=== PATIENT | male | born 1955 | race Asian ===

== ENCOUNTER → 2019-09-26 | Outpatient (CLI) | payer OTHER | END | disposition home or self-care (01) | LOC: PUC 13:03 | DX: J40 Bronchitis, not specified as acute or chronic (principal) ==

== ENCOUNTER 2019-12-27 07:54 | Inpatient (IN) | payer OTHER ==
[~2019-12-27] VITALS: Ht 177.8 cm; Wt 97.1 kg
[2019-12-27] MEDS ORDERED: CETI10TA59 PO (08:50)
[2019-12-27] MEDS ORDERED: HYDR-1475 PO (08:50)
[2019-12-27] MEDS ORDERED: ADV100 IH (08:50)
[2019-12-27] MEDS ORDERED: ASPI-728 PO (08:50)
[2019-12-27] MEDS ORDERED: TAMS-13 PO (08:50)
[2019-12-27] MEDS ORDERED: METO25 PO (08:50)
[2019-12-27] MEDS ORDERED: LOSA25TA71 PO (08:50)
[2019-12-27] MEDS ORDERED: SERT100T12 PO (08:50)
[2019-12-27] MEDS ORDERED: IPRA4AER IH (08:50)
[2019-12-27 09:19] LABS: BASOPHILS % (AUTO) 0.5 % (0.0-2.0); EOSINOPHILS % (AUTO) 0.3 % (1.0-6.0); HEMOGLOBIN 14.3 g/dL (13.5-17.5); LYMPHOCYTES # (AUTO) 0.8 K/uL (1.0-4.8); LYMPHOCYTES % (AUTO) 8.2 % (22.0-44.0); MEAN CORPUSCULAR HEMOGLOBIN 31.3 pg (26.0-34.0); MEAN CORPUSCULAR HGB CONC 33.3 G/dL (31.0-37.0); MEAN CORPUSCULAR VOLUME 94 fL (80-100); MONOCYTES # (AUTO) 1.4 K/uL (0.1-1.0); MONOCYTES % (AUTO) 13.7 % (2.0-9.0); NEUTROPHILS # (AUTO) 7.7 K/uL (1.8-7.7); NEUTROPHILS % (AUTO) 77.3 % (40.0-70.0); PLATELET COUNT (AUTO) 315 K/uL (150-450); RED BLOOD CELL COUNT(AUTO) 4.58 MIL/uL (4.50-5.90); RED CELL DISTRIBUTION WIDTH 12.7 % (11.5-14.5)
[2019-12-27] MEDS ORDERED: 0.9% SODIUM CHLORIDE 10 ML SYRINGE IVP PRN ×2 (10:00→11:30)
[2019-12-27] MEDS ORDERED: ACETAMINOPHEN 325 MG TABLET PO PRN (10:00)
[2019-12-27] MEDS ORDERED: ONDANSETRON HCL 4 MG/2 ML VIAL IVP PRN ×2 (10:00→11:30)
[2019-12-27 10:10] LABS: ANION GAP 14 mmol/L (8-16); CALCIUM, TOTAL 8.9 mg/dL (8.8-10.5); CARBON DIOXIDE 23 mmol/L (22-29); CHLORIDE 96 mmol/L (98-107); CREATININE 0.94 mg/dL (0.60-1.30); GLOMERULAR FILTR. RATE CALC > 60 mL/min (>60); GLUCOSE,RANDOM 106 mg/dL (70-110); POTASSIUM 3.6 mmol/L (3.5-5.1); SODIUM SERUM 133 mmol/L (136-145); UREA NITROGEN, BLOOD 11 mg/dL (7-18)
[2019-12-27 10:13] LABS: ALANINE AMINOTRANSFERASE 321 U/L (12-78); ALBUMIN 2.7 g/dL (3.4-5.0); ALKALINE PHOSPHATASE 177 U/L (46-116); ASPARTATE AMINOTRANSFERASE 225 U/L (15-37); BILIRUBIN,TOTAL 1.1 mg/dL (0.1-1.0); TOTAL PROTEIN, SERUM 7.6 g/dL (6.4-8.2)
[2019-12-27] MEDS ORDERED: DEXTROSE 50%-WATER 25 GM/50 ML SYRINGE IVP PRN (11:15)
[2019-12-27] MEDS ORDERED: ALBUTEROL SULFATE/IPRATROPIUM 100-20 MCG/SPRAY 4 GM INHALER IH PRN (11:15)
[2019-12-27] MEDS ORDERED: MAGNESIUM HYDROXIDE SUSPENSION 30 ML UDCUP PO PRN (11:30)
[2019-12-27] MEDS ORDERED: BISACODYL 10 MG RECTAL RECTAL SUPPOSITORY PR PRN (11:30)
[2019-12-27 12:48] LABS: C-REACTIVE PROTEIN QUANT 20.21 mg/dL (0.00-0.30)
[2019-12-27 12:55] LABS: ERYTHROCYTE SEDIMENTATION RATE 101 MM/HR (0-15)
[2019-12-27 14:16] LABS: FERRITIN 3007 ng/mL (26-388)
[2019-12-27 14:43] VITALS: BP 147/78
[2019-12-27] MEDS ORDERED: PNEUMOCOCCAL VACCINE POLYVALENT 0.5 ML VIAL [PPSV23] IM ONE (17:00)
[2019-12-27 17:57] LABS: GLUCOMETER DEV NAME(LOC) 5S.2A; GLUCOSE,POINT OF CARE 101 MG/DL (70-110)
[2019-12-27 20:30] VITALS: BP 149/79
[2019-12-27] MEDS: HEPARIN SODIUM,PORCINE 5,000 UNITS/ML VIAL SQ SCH (21:17)
[2019-12-27] MEDS: METOPROLOL TARTRATE 25 MG TABLET PO SCH (21:17)
[2019-12-27] MEDS: TAMSULOSIN HCL 0.4 MG CAPSULE PO SCH (21:17)
[2019-12-27] MEDS: FLUTICASONE/SALMETEROL 100 MCG-50 MCG/INH DISKUS INHALER [28] IH SCH (21:17)
[2019-12-27] MEDS: ACETAMINOPHEN 325 MG TABLET PO PRN (21:37)
[2019-12-27 23:54] VITALS: BP 108/74
[2019-12-28 04:30] VITALS: BP 135/78
[2019-12-28 07:51] LABS: BASOPHILS % (AUTO) 0.4 % (0.0-2.0); EOSINOPHILS % (AUTO) 1.3 % (1.0-6.0); HEMATOCRIT 39.9 % (41-53); HEMOGLOBIN 13.8 g/dL (13.5-17.5); LYMPHOCYTES # (AUTO) 0.9 K/uL (1.0-4.8); LYMPHOCYTES % (AUTO) 8.8 % (22.0-44.0); MEAN CORPUSCULAR HEMOGLOBIN 32.3 pg (26.0-34.0); MEAN CORPUSCULAR HGB CONC 34.5 G/dL (31.0-37.0); MEAN CORPUSCULAR VOLUME 94 fL (80-100); MONOCYTES # (AUTO) 1.2 K/uL (0.1-1.0); MONOCYTES % (AUTO) 12.6 % (2.0-9.0); NEUTROPHILS # (AUTO) 7.6 K/uL (1.8-7.7); NEUTROPHILS % (AUTO) 76.9 % (40.0-70.0); PLATELET COUNT (AUTO) 332 K/uL (150-450); RED BLOOD CELL COUNT(AUTO) 4.26 MIL/uL (4.50-5.90); RED CELL DISTRIBUTION WIDTH 12.3 % (11.5-14.5)
[2019-12-28 07:59] LABS: ALANINE AMINOTRANSFERASE 261 U/L (12-78); ALBUMIN 2.4 g/dL (3.4-5.0); ALKALINE PHOSPHATASE 173 U/L (46-116); ANION GAP 8 mmol/L (8-16); ASPARTATE AMINOTRANSFERASE 144 U/L (15-37); BILIRUBIN,TOTAL 1.1 mg/dL (0.1-1.0); CALCIUM, TOTAL 8.3 mg/dL (8.8-10.5); CARBON DIOXIDE 27 mmol/L (22-29); CHLORIDE 97 mmol/L (98-107); CREATININE 1.03 mg/dL (0.60-1.30); GLOMERULAR FILTR. RATE CALC > 60 mL/min (>60); GLUCOSE,RANDOM 103 mg/dL (70-110); POTASSIUM 3.4 mmol/L (3.5-5.1); SODIUM SERUM 132 mmol/L (136-145); TOTAL PROTEIN, SERUM 7.2 g/dL (6.4-8.2); UREA NITROGEN, BLOOD 13 mg/dL (7-18)
[2019-12-28 08:00] VITALS: BP 136/84
[2019-12-28] MEDS: LOSARTAN POTASSIUM 25 MG TABLET PO SCH (08:22)
[2019-12-28] MEDS: FLUTICASONE/SALMETEROL 100 MCG-50 MCG/INH DISKUS INHALER [28] IH SCH ×2 (08:22→21:32)
[2019-12-28] MEDS: ASPIRIN 81 MG CHEWABLE TABLET PO SCH (08:22)
[2019-12-28] MEDS: SERTRALINE HCL 100 MG TABLET PO SCH (08:23)
[2019-12-28] MEDS: PANTOPRAZOLE SODIUM 40 MG DR TABLET PO SCH (08:23)
[2019-12-28] MEDS: CETIRIZINE HCL 10 MG TABLET PO SCH (08:23)
[2019-12-28] MEDS: HEPARIN SODIUM,PORCINE 5,000 UNITS/ML VIAL SQ SCH ×2 (08:23→21:00)
[2019-12-28] MEDS: METOPROLOL TARTRATE 25 MG TABLET PO SCH ×2 (08:23→21:30)
[2019-12-28] MEDS: TAMSULOSIN HCL 0.4 MG CAPSULE PO SCH ×2 (08:23→21:32)
[2019-12-28 12:24] VITALS: BP 114/70
[2019-12-28] MEDS ORDERED: ALPRAZolam 0.25 MG TABLET PO PRN (13:45)
[2019-12-28] MEDS ORDERED: POTASSIUM CHL 10 MEQ/WATER 50 ML IV PRN (13:45)
[2019-12-28] MEDS: HYDROXYCHLOROQUINE SULFATE 200 MG TABLET PO SCH ×2 (14:22→21:31)
[2019-12-28] MEDS: POTASSIUM CHLORIDE 20 MEQ ER TABLET PO PRN ×2 (14:22→21:31)
[2019-12-28 16:00] VITALS: BP 118/72
[2019-12-28 17:51] LABS: GLUCOMETER DEV NAME(LOC) 5S.2A; GLUCOSE,POINT OF CARE 114 MG/DL (70-110)
[2019-12-28 20:00] VITALS: BP 137/80
[2019-12-28 21:04] LABS: APPEARANCE,URINE CLEAR (CLEAR); GLUCOSE, URINE (UA) NEGATIVE (NEGATIVE); KETONES,URINE NEGATIVE (NEGATIVE); LEUKOCYTE ESTERASE ,URINE TRACE (NEGATIVE); NITRATE,URINE NEGATIVE (NEGATIVE); OCCULT BLOOD,URINE NEGATIVE (NEGATIVE); PROTEIN,URINE SEE CONFIRM (NEGATIVE)
[2019-12-28 21:06] LABS: BILIRUBIN,URINE PRELIM. POSITIVE (NEGATIVE)
[2019-12-28 21:17] LABS: BACTERIA,URINE Rare /HPF (None Seen); RBC,URINE 0-2 /HPF (0-2); SQUAMOUS EPITHELIAL CELL,UR Few /LPF (None Seen); SULFOSALICYLIC ACID,URINE 2+ (Negative)
[2019-12-28] MEDS: ZINC GLUCONATE 50 MG TABLET PO SCH (21:32)
[2019-12-29 00:34] VITALS: BP 110/74
[2019-12-29 05:51] VITALS: BP 130/78
[2019-12-29 06:01] LABS: GLUCOMETER DEV NAME(LOC) 5N.1; GLUCOSE,POINT OF CARE 117 MG/DL (70-110)
[2019-12-29 06:01] LABS: GLUCOMETER DEV NAME(LOC) 5N.1; GLUCOSE,POINT OF CARE 106 MG/DL (70-110)
[2019-12-29 06:01] LABS: GLUCOMETER DEV NAME(LOC) 5N.1; GLUCOSE,POINT OF CARE 122 MG/DL (70-110)
[2019-12-29 06:01] LABS: GLUCOMETER DEV NAME(LOC) 5N.1; GLUCOSE,POINT OF CARE 112 MG/DL (70-110)
[2019-12-29 08:12] LABS: BASOPHILS % (AUTO) 0.2 % (0.0-2.0); HEMATOCRIT 38.3 % (41-53); LYMPHOCYTES # (AUTO) 0.9 K/uL (1.0-4.8); LYMPHOCYTES % (AUTO) 8.6 % (22.0-44.0); MEAN CORPUSCULAR HEMOGLOBIN 31.9 pg (26.0-34.0); MEAN CORPUSCULAR HGB CONC 33.8 G/dL (31.0-37.0); MEAN CORPUSCULAR VOLUME 94 fL (80-100); MONOCYTES # (AUTO) 1.1 K/uL (0.1-1.0); MONOCYTES % (AUTO) 10.8 % (2.0-9.0); NEUTROPHILS % (AUTO) 78.4 % (40.0-70.0); PLATELET COUNT (AUTO) 403 K/uL (150-450); RED BLOOD CELL COUNT(AUTO) 4.06 MIL/uL (4.50-5.90); RED CELL DISTRIBUTION WIDTH 12.4 % (11.5-14.5)
[2019-12-29 08:31] LABS: D-DIMER 4.56 mg/L FEU (0.00-0.50); INR 1.1 (0.9-1.1); PROTHROMBIN TIME 10.9 SEC (9.4-11.6)
[2019-12-29 08:59] LABS: ALANINE AMINOTRANSFERASE 199 U/L (12-78); ALBUMIN 2.3 g/dL (3.4-5.0); ALKALINE PHOSPHATASE 173 U/L (46-116); ANION GAP 10 mmol/L (8-16); ASPARTATE AMINOTRANSFERASE 89 U/L (15-37); BILIRUBIN,TOTAL 0.7 mg/dL (0.1-1.0); C-REACTIVE PROTEIN QUANT 17.16 mg/dL (0.00-0.30); CARBON DIOXIDE 24 mmol/L (22-29); CHLORIDE 100 mmol/L (98-107); CREATININE 0.92 mg/dL (0.60-1.30); FERRITIN 2583 ng/mL (26-388); GLOMERULAR FILTR. RATE CALC > 60 mL/min (>60); GLUCOSE,RANDOM 96 mg/dL (70-110); POTASSIUM 4.3 mmol/L (3.5-5.1); SODIUM SERUM 134 mmol/L (136-145); TOTAL PROTEIN, SERUM 6.3 g/dL (6.4-8.2); UREA NITROGEN, BLOOD 15 mg/dL (7-18)
[2019-12-29 09:01] LABS: B-TYPE NATRIURETIC PEPTIDE 56 pg/mL (0-100)
[2019-12-29 09:10] LABS: LACTATE DEHYDROGENASE 276 U/L (85-227)
[2019-12-29] MEDS: HYDROXYCHLOROQUINE SULFATE 200 MG TABLET PO SCH ×2 (09:19→21:52)
[2019-12-29] MEDS: ZINC GLUCONATE 50 MG TABLET PO SCH (09:19)
[2019-12-29] MEDS: METOPROLOL TARTRATE 25 MG TABLET PO SCH ×2 (09:19→21:53)
[2019-12-29] MEDS: CETIRIZINE HCL 10 MG TABLET PO SCH (09:20)
[2019-12-29] MEDS: LOSARTAN POTASSIUM 25 MG TABLET PO SCH (09:20)
[2019-12-29] MEDS: SERTRALINE HCL 100 MG TABLET PO SCH (09:20)
[2019-12-29] MEDS: TAMSULOSIN HCL 0.4 MG CAPSULE PO SCH ×2 (09:20→21:52)
[2019-12-29] MEDS: ASPIRIN 81 MG CHEWABLE TABLET PO SCH (09:20)
[2019-12-29] MEDS: PANTOPRAZOLE SODIUM 40 MG DR TABLET PO SCH (09:21)
[2019-12-29] MEDS: FLUTICASONE/SALMETEROL 100 MCG-50 MCG/INH DISKUS INHALER [28] IH SCH ×2 (09:21→21:52)
[2019-12-29] MEDS: HEPARIN SODIUM,PORCINE 5,000 UNITS/ML VIAL SQ SCH ×2 (09:22→21:52)
[2019-12-29 13:56] VITALS: BP 117/76
[2019-12-29] MEDS: AZITHROMYCIN 500 MG TABLET PO SCH (15:15)
[2019-12-29 16:05] VITALS: BP 120/72
[2019-12-29 20:05] VITALS: BP 121/74
[2019-12-29 20:59] LABS: GLUCOMETER DEV NAME(LOC) 5N.2; GLUCOSE,POINT OF CARE 115 MG/DL (70-110)
[2019-12-30] VITALS (7 sets, daily range): BP systolic 100–140; BP diastolic 54–78
[2019-12-30 06:20] LABS: BASOPHILS % (AUTO) 0.4 % (0.0-2.0); EOSINOPHILS % (AUTO) 1.5 % (1.0-6.0); HEMATOCRIT 37.6 % (41-53); HEMOGLOBIN 12.7 g/dL (13.5-17.5); LYMPHOCYTES # (AUTO) 0.9 K/uL (1.0-4.8); LYMPHOCYTES % (AUTO) 10.1 % (22.0-44.0); MEAN CORPUSCULAR HEMOGLOBIN 31.7 pg (26.0-34.0); MEAN CORPUSCULAR HGB CONC 33.7 G/dL (31.0-37.0); MEAN CORPUSCULAR VOLUME 94 fL (80-100); MONOCYTES # (AUTO) 1.2 K/uL (0.1-1.0); MONOCYTES % (AUTO) 13.3 % (2.0-9.0); NEUTROPHILS # (AUTO) 6.7 K/uL (1.8-7.7); NEUTROPHILS % (AUTO) 74.7 % (40.0-70.0); PLATELET COUNT (AUTO) 468 K/uL (150-450); RED BLOOD CELL COUNT(AUTO) 3.99 MIL/uL (4.50-5.90); RED CELL DISTRIBUTION WIDTH 12.8 % (11.5-14.5)
[2019-12-30 06:26] LABS: GLUCOMETER DEV NAME(LOC) 5N.2; GLUCOSE,POINT OF CARE 137 MG/DL (70-110)
[2019-12-30 06:27] LABS: GLUCOMETER DEV NAME(LOC) 5S.1; GLUCOSE,POINT OF CARE 90 MG/DL (70-110)
[2019-12-30 06:27] LABS: GLUCOMETER DEV NAME(LOC) 5S.1; GLUCOSE,POINT OF CARE 97 MG/DL (70-110)
[2019-12-30 06:36] LABS: ALANINE AMINOTRANSFERASE 170 U/L (12-78); ALBUMIN 2.2 g/dL (3.4-5.0); ALKALINE PHOSPHATASE 170 U/L (46-116); ANION GAP 8 mmol/L (8-16); ASPARTATE AMINOTRANSFERASE 82 U/L (15-37); BILIRUBIN,TOTAL 0.7 mg/dL (0.1-1.0); CALCIUM, TOTAL 8.3 mg/dL (8.8-10.5); CARBON DIOXIDE 27 mmol/L (22-29); CHLORIDE 101 mmol/L (98-107); CREATININE 1.01 mg/dL (0.60-1.30); GLOMERULAR FILTR. RATE CALC > 60 mL/min (>60); GLUCOSE,RANDOM 92 mg/dL (70-110); POTASSIUM 4.6 mmol/L (3.5-5.1); SODIUM SERUM 136 mmol/L (136-145); UREA NITROGEN, BLOOD 12 mg/dL (7-18)
[2019-12-30 06:39] LABS: GLUCOMETER DEV NAME(LOC) 5N.1; GLUCOSE,POINT OF CARE 105 MG/DL (70-110)
[2019-12-30] MEDS: ASPIRIN 81 MG CHEWABLE TABLET PO SCH (08:46)
[2019-12-30] MEDS: LOSARTAN POTASSIUM 25 MG TABLET PO SCH (08:47)
[2019-12-30] MEDS: TAMSULOSIN HCL 0.4 MG CAPSULE PO SCH ×2 (08:47→20:41)
[2019-12-30] MEDS: HYDROXYCHLOROQUINE SULFATE 200 MG TABLET PO SCH ×2 (08:52→20:41)
[2019-12-30] MEDS: METOPROLOL TARTRATE 25 MG TABLET PO SCH ×2 (08:52→20:41)
[2019-12-30] MEDS: PANTOPRAZOLE SODIUM 40 MG DR TABLET PO SCH (08:52)
[2019-12-30] MEDS: ZINC GLUCONATE 50 MG TABLET PO SCH (08:52)
[2019-12-30] MEDS: HEPARIN SODIUM,PORCINE 5,000 UNITS/ML VIAL SQ SCH ×2 (08:53→20:41)
[2019-12-30] MEDS: CETIRIZINE HCL 10 MG TABLET PO SCH (08:53)
[2019-12-30] MEDS: SERTRALINE HCL 100 MG TABLET PO SCH (08:53)
[2019-12-30] MEDS: AZITHROMYCIN 500 MG TABLET PO SCH (08:53)
[2019-12-30] MEDS: FLUTICASONE/SALMETEROL 100 MCG-50 MCG/INH DISKUS INHALER [28] IH SCH ×2 (09:34→21:36)
[2019-12-30] MEDS: ACETAMINOPHEN 325 MG TABLET PO PRN (17:52)
[2019-12-31 04:30] VITALS: BP 113/58
[2019-12-31 06:05] LABS: BASOPHILS % (AUTO) 0.6 % (0.0-2.0); EOSINOPHILS % (AUTO) 0.8 % (1.0-6.0); HEMATOCRIT 37.2 % (41-53); HEMOGLOBIN 12.9 g/dL (13.5-17.5); LYMPHOCYTES # (AUTO) 0.9 K/uL (1.0-4.8); LYMPHOCYTES % (AUTO) 7.9 % (22.0-44.0); MEAN CORPUSCULAR HEMOGLOBIN 32.7 pg (26.0-34.0); MEAN CORPUSCULAR HGB CONC 34.6 G/dL (31.0-37.0); MEAN CORPUSCULAR VOLUME 95 fL (80-100); MONOCYTES # (AUTO) 1.3 K/uL (0.1-1.0); NEUTROPHILS # (AUTO) 8.7 K/uL (1.8-7.7); NEUTROPHILS % (AUTO) 78.7 % (40.0-70.0); PLATELET COUNT (AUTO) 500 K/uL (150-450); RED BLOOD CELL COUNT(AUTO) 3.93 MIL/uL (4.50-5.90); RED CELL DISTRIBUTION WIDTH 12.9 % (11.5-14.5)
[2019-12-31 06:20] LABS: GLUCOMETER DEV NAME(LOC) 5S.1; GLUCOSE,POINT OF CARE 123 MG/DL (70-110)
[2019-12-31 06:20] LABS: GLUCOMETER DEV NAME(LOC) 5N.2; GLUCOSE,POINT OF CARE 112 MG/DL (70-110)
[2019-12-31 06:20] LABS: GLUCOMETER DEV NAME(LOC) 5N.2; GLUCOSE,POINT OF CARE 101 MG/DL (70-110)
[2019-12-31 06:21] LABS: GLUCOMETER DEV NAME(LOC) 5N.1; GLUCOSE,POINT OF CARE 95 MG/DL (70-110)
[2019-12-31 06:40] LABS: ALANINE AMINOTRANSFERASE 207 U/L (12-78); ALBUMIN 2.1 g/dL (3.4-5.0); ALKALINE PHOSPHATASE 171 U/L (46-116); ANION GAP 7 mmol/L (8-16); ASPARTATE AMINOTRANSFERASE 124 U/L (15-37); BILIRUBIN,TOTAL 0.6 mg/dL (0.1-1.0); CALCIUM, TOTAL 8.5 mg/dL (8.8-10.5); CARBON DIOXIDE 25 mmol/L (22-29); CHLORIDE 102 mmol/L (98-107); CREATININE 0.97 mg/dL (0.60-1.30); GLOMERULAR FILTR. RATE CALC > 60 mL/min (>60); GLUCOSE,RANDOM 99 mg/dL (70-110); POTASSIUM 4.5 mmol/L (3.5-5.1); SODIUM SERUM 134 mmol/L (136-145); UREA NITROGEN, BLOOD 11 mg/dL (7-18)
[2019-12-31] MEDS: LOSARTAN POTASSIUM 25 MG TABLET PO SCH (08:21)
[2019-12-31] MEDS: TAMSULOSIN HCL 0.4 MG CAPSULE PO SCH ×2 (08:21→20:17)
[2019-12-31] MEDS: METOPROLOL TARTRATE 25 MG TABLET PO SCH ×2 (08:21→20:17)
[2019-12-31] MEDS: CETIRIZINE HCL 10 MG TABLET PO SCH (08:21)
[2019-12-31] MEDS: ASPIRIN 81 MG CHEWABLE TABLET PO SCH (08:21)
[2019-12-31] MEDS: HEPARIN SODIUM,PORCINE 5,000 UNITS/ML VIAL SQ SCH ×2 (08:22→20:17)
[2019-12-31] MEDS: ZINC GLUCONATE 50 MG TABLET PO SCH (08:22)
[2019-12-31] MEDS: AZITHROMYCIN 500 MG TABLET PO SCH (08:22)
[2019-12-31] MEDS: HYDROXYCHLOROQUINE SULFATE 200 MG TABLET PO SCH ×2 (08:22→20:17)
[2019-12-31] MEDS: PANTOPRAZOLE SODIUM 40 MG DR TABLET PO SCH (08:23)
[2019-12-31] MEDS: SERTRALINE HCL 100 MG TABLET PO SCH (08:23)
[2019-12-31 08:38] VITALS: BP 129/54
[2019-12-31 12:30] VITALS: BP 129/62
[2019-12-31] MEDS: FLUTICASONE/SALMETEROL 100 MCG-50 MCG/INH DISKUS INHALER [28] IH SCH ×2 (12:37→20:18)
[2019-12-31] MEDS: INSULIN LISPRO 100 UNITS/ML SQ PRN (12:37)
[2019-12-31 14:36] LABS: GLUCOMETER DEV NAME(LOC) 5S.1; GLUCOSE,POINT OF CARE 96 MG/DL (70-110)
[2019-12-31 18:17] VITALS: BP 104/56
[2019-12-31 20:00] VITALS: BP 113/49
[2019-12-31] MEDS: ACETAMINOPHEN 325 MG TABLET PO PRN (20:33)
[2020-01-01] VITALS: BP 120/61
[2020-01-01 04:00] VITALS: BP 126/57
[2020-01-01 06:04] LABS: GLUCOMETER DEV NAME(LOC) 5S.1; GLUCOSE,POINT OF CARE 100 MG/DL (70-110)
[2020-01-01 06:05] LABS: GLUCOMETER DEV NAME(LOC) 5S.1; GLUCOSE,POINT OF CARE 126 MG/DL (70-110)
[2020-01-01 06:22] LABS: BASOPHILS % (AUTO) 0.2 % (0.0-2.0); EOSINOPHILS % (AUTO) 0.2 % (1.0-6.0); HEMATOCRIT 38.6 % (41-53); HEMOGLOBIN 12.7 g/dL (13.5-17.5); LYMPHOCYTES # (AUTO) 1.1 K/uL (1.0-4.8); LYMPHOCYTES % (AUTO) 7.1 % (22.0-44.0); MEAN CORPUSCULAR HEMOGLOBIN 31.5 pg (26.0-34.0); MEAN CORPUSCULAR VOLUME 95 fL (80-100); MONOCYTES # (AUTO) 1.5 K/uL (0.1-1.0); MONOCYTES % (AUTO) 9.8 % (2.0-9.0); NEUTROPHILS # (AUTO) 12.8 K/uL (1.8-7.7); NEUTROPHILS % (AUTO) 82.7 % (40.0-70.0); PLATELET COUNT (AUTO) 500 K/uL (150-450); RED BLOOD CELL COUNT(AUTO) 4.05 MIL/uL (4.50-5.90); RED CELL DISTRIBUTION WIDTH 12.4 % (11.5-14.5)
[2020-01-01 07:12] LABS: GLUCOMETER DEV NAME(LOC) 5N.2; GLUCOSE,POINT OF CARE 106 MG/DL (70-110)
[2020-01-01 07:37] LABS: ALANINE AMINOTRANSFERASE 171 U/L (12-78); ALBUMIN 2.1 g/dL (3.4-5.0); ALKALINE PHOSPHATASE 168 U/L (46-116); ANION GAP 11 mmol/L (8-16); ASPARTATE AMINOTRANSFERASE 84 U/L (15-37); BILIRUBIN,TOTAL 0.7 mg/dL (0.1-1.0); CALCIUM, TOTAL 8.2 mg/dL (8.8-10.5); CARBON DIOXIDE 22 mmol/L (22-29); CHLORIDE 100 mmol/L (98-107); CREATININE 0.96 mg/dL (0.60-1.30); FERRITIN 1676 ng/mL (26-388); GLOMERULAR FILTR. RATE CALC > 60 mL/min (>60); GLUCOSE,RANDOM 103 mg/dL (70-110); LACTATE DEHYDROGENASE 225 U/L (85-227); POTASSIUM 4.4 mmol/L (3.5-5.1); SODIUM SERUM 133 mmol/L (136-145); TOTAL PROTEIN, SERUM 7.1 g/dL (6.4-8.2); UREA NITROGEN, BLOOD 10 mg/dL (7-18)
[2020-01-01] MEDS: SERTRALINE HCL 100 MG TABLET PO SCH ×2 (07:42→07:43)
[2020-01-01] MEDS: CETIRIZINE HCL 10 MG TABLET PO SCH (07:43)
[2020-01-01] MEDS: ASPIRIN 81 MG CHEWABLE TABLET PO SCH (07:43)
[2020-01-01] MEDS: AZITHROMYCIN 500 MG TABLET PO SCH (07:43)
[2020-01-01] MEDS: PANTOPRAZOLE SODIUM 40 MG DR TABLET PO SCH (07:44)
[2020-01-01] MEDS: TAMSULOSIN HCL 0.4 MG CAPSULE PO SCH ×2 (07:44→21:24)
[2020-01-01] MEDS: ZINC GLUCONATE 50 MG TABLET PO SCH (07:45)
[2020-01-01] MEDS: FLUTICASONE/SALMETEROL 100 MCG-50 MCG/INH DISKUS INHALER [28] IH SCH ×2 (07:45→21:23)
[2020-01-01] MEDS: HYDROXYCHLOROQUINE SULFATE 200 MG TABLET PO SCH ×2 (07:45→21:24)
[2020-01-01] MEDS: HEPARIN SODIUM,PORCINE 5,000 UNITS/ML VIAL SQ SCH ×2 (07:46→21:24)
[2020-01-01 07:56] VITALS: BP 125/54
[2020-01-01] MEDS: METOPROLOL TARTRATE 25 MG TABLET PO SCH ×2 (07:56→21:24)
[2020-01-01] MEDS: LOSARTAN POTASSIUM 25 MG TABLET PO SCH (07:56)
[2020-01-01] MEDS: ACETAMINOPHEN 325 MG TABLET PO PRN ×2 (08:31→17:52)
[2020-01-01 12:00] VITALS: BP 113/68
[2020-01-01 17:45] VITALS: BP 142/74
[2020-01-01] MEDS: INSULIN LISPRO 100 UNITS/ML SQ PRN (17:52)
[2020-01-01] MEDS: MetroNIDAZOLE 500 MG TABLET PO SCH ×2 (17:52→21:24)
[2020-01-01 18:48] LABS: GLUCOMETER DEV NAME(LOC) 5N.2; GLUCOSE,POINT OF CARE 106 MG/DL (70-110)
[2020-01-01 18:48] LABS: GLUCOMETER DEV NAME(LOC) 5N.2; GLUCOSE,POINT OF CARE 103 MG/DL (70-110)
[2020-01-01 20:00] VITALS: BP 146/76
[2020-01-02] VITALS: BP 120/68
[2020-01-02 04:00] VITALS: BP 118/64
[2020-01-02] MEDS: ACETAMINOPHEN 325 MG TABLET PO PRN ×3 (05:04→20:09)
[2020-01-02 08:06] LABS: GLUCOMETER DEV NAME(LOC) 5N.2; GLUCOSE,POINT OF CARE 130 MG/DL (70-110)
[2020-01-02 08:06] LABS: GLUCOMETER DEV NAME(LOC) 5N.2; GLUCOSE,POINT OF CARE 106 MG/DL (70-110)
[2020-01-02] MEDS: ASPIRIN 81 MG CHEWABLE TABLET PO SCH (08:26)
[2020-01-02] MEDS: AZITHROMYCIN 500 MG TABLET PO SCH (08:27)
[2020-01-02] MEDS: PANTOPRAZOLE SODIUM 40 MG DR TABLET PO SCH (08:27)
[2020-01-02] MEDS: SERTRALINE HCL 100 MG TABLET PO SCH (08:27)
[2020-01-02] MEDS: METOPROLOL TARTRATE 25 MG TABLET PO SCH ×2 (08:27→20:06)
[2020-01-02] MEDS: MetroNIDAZOLE 500 MG TABLET PO SCH ×3 (08:27→20:06)
[2020-01-02] MEDS: LOSARTAN POTASSIUM 25 MG TABLET PO SCH (08:27)
[2020-01-02] MEDS: ZINC GLUCONATE 50 MG TABLET PO SCH (08:27)
[2020-01-02] MEDS: TAMSULOSIN HCL 0.4 MG CAPSULE PO SCH ×2 (08:27→20:06)
[2020-01-02] MEDS: CETIRIZINE HCL 10 MG TABLET PO SCH (08:27)
[2020-01-02] MEDS: HYDROXYCHLOROQUINE SULFATE 200 MG TABLET PO SCH (08:28)
[2020-01-02] MEDS: HEPARIN SODIUM,PORCINE 5,000 UNITS/ML VIAL SQ SCH ×2 (08:28→20:06)
[2020-01-02] MEDS: FLUTICASONE/SALMETEROL 100 MCG-50 MCG/INH DISKUS INHALER [28] IH SCH ×2 (08:30→20:10)
[2020-01-02 08:39] VITALS: BP 124/55
[2020-01-02 10:43] LABS: BASOPHILS % (AUTO) 0.4 % (0.0-2.0); EOSINOPHILS % (AUTO) 0.2 % (1.0-6.0); HEMATOCRIT 37.7 % (41-53); HEMOGLOBIN 12.4 g/dL (13.5-17.5); LYMPHOCYTES # (AUTO) 0.7 K/uL (1.0-4.8); MEAN CORPUSCULAR HEMOGLOBIN 31.1 pg (26.0-34.0); MEAN CORPUSCULAR HGB CONC 32.9 G/dL (31.0-37.0); MEAN CORPUSCULAR VOLUME 95 fL (80-100); MONOCYTES % (AUTO) 5.7 % (2.0-9.0); NEUTROPHILS # (AUTO) 15.7 K/uL (1.8-7.7); PLATELET COUNT (AUTO) 475 K/uL (150-450); RED BLOOD CELL COUNT(AUTO) 3.98 MIL/uL (4.50-5.90); RED CELL DISTRIBUTION WIDTH 12.7 % (11.5-14.5)
[2020-01-02 10:44] LABS: NEUTROPHILS % (AUTO) 89.7 % (40.0-70.0)
[2020-01-02 10:54] LABS: ANION GAP 9 mmol/L (8-16); CALCIUM, TOTAL 8.2 mg/dL (8.8-10.5); CARBON DIOXIDE 23 mmol/L (22-29); CHLORIDE 100 mmol/L (98-107); CREATININE 1.07 mg/dL (0.60-1.30); GLOMERULAR FILTR. RATE CALC > 60 mL/min (>60); GLUCOSE,RANDOM 143 mg/dL (70-110); POTASSIUM 4.3 mmol/L (3.5-5.1); SODIUM SERUM 132 mmol/L (136-145); UREA NITROGEN, BLOOD 11 mg/dL (7-18)
[2020-01-02 11:00] LABS: ALANINE AMINOTRANSFERASE 133 U/L (12-78); ALKALINE PHOSPHATASE 161 U/L (46-116); ASPARTATE AMINOTRANSFERASE 53 U/L (15-37); BILIRUBIN,TOTAL 0.6 mg/dL (0.1-1.0); TOTAL PROTEIN, SERUM 6.9 g/dL (6.4-8.2)
[2020-01-02 12:19] LABS: FERRITIN 1573 ng/mL (26-388)
[2020-01-02 12:25] VITALS: BP 115/49
[2020-01-02 15:44] VITALS: BP 118/50
[2020-01-02 20:00] VITALS: BP 118/60
[2020-01-02 21:09] LABS: GLUCOMETER DEV NAME(LOC) 5N.1; GLUCOSE,POINT OF CARE 109 MG/DL (70-110)
[2020-01-02 21:09] LABS: GLUCOMETER DEV NAME(LOC) 5N.1; GLUCOSE,POINT OF CARE 114 MG/DL (70-110)
[2020-01-02 21:10] LABS: GLUCOMETER DEV NAME(LOC) 5N.1; GLUCOSE,POINT OF CARE 98 MG/DL (70-110)
[2020-01-03] VITALS: BP 91/57
[2020-01-03 04:00] VITALS: BP 122/54
[2020-01-03 06:57] LABS: GLUCOMETER DEV NAME(LOC) 5N.2; GLUCOSE,POINT OF CARE 131 MG/DL (70-110)
[2020-01-03 07:07] LABS: EOSINOPHILS % (AUTO) 0 % (1.0-6.0); HEMATOCRIT 38.5 % (41-53); HEMOGLOBIN 12.5 g/dL (13.5-17.5); LYMPHOCYTES # (AUTO) 0.6 K/uL (1.0-4.8); LYMPHOCYTES % (AUTO) 3.7 % (22.0-44.0); MEAN CORPUSCULAR HGB CONC 32.4 G/dL (31.0-37.0); MEAN CORPUSCULAR VOLUME 96 fL (80-100); MONOCYTES # (AUTO) 3.8 K/uL (0.1-1.0); NEUTROPHILS # (AUTO) 12.3 K/uL (1.8-7.7); PLATELET COUNT (AUTO) 485 K/uL (150-450); RED BLOOD CELL COUNT(AUTO) 4.02 MIL/uL (4.50-5.90); RED CELL DISTRIBUTION WIDTH 12.9 % (11.5-14.5)
[2020-01-03 07:19] LABS: NEUTROPHILS % (AUTO) 83.4 % (40.0-70.0)
[2020-01-03 07:20] LABS: MONOCYTES % (AUTO) 12.9 % (2.0-9.0)
[2020-01-03 07:34] LABS: ALANINE AMINOTRANSFERASE 104 U/L (12-78); ALKALINE PHOSPHATASE 168 U/L (46-116); ANION GAP 11 mmol/L (8-16); ASPARTATE AMINOTRANSFERASE 40 U/L (15-37); BILIRUBIN,TOTAL 0.5 mg/dL (0.1-1.0); CALCIUM, TOTAL 8.5 mg/dL (8.8-10.5); CARBON DIOXIDE 21 mmol/L (22-29); CHLORIDE 100 mmol/L (98-107); GLOMERULAR FILTR. RATE CALC > 60 mL/min (>60); GLUCOSE,RANDOM 115 mg/dL (70-110); POTASSIUM 4.7 mmol/L (3.5-5.1); SODIUM SERUM 132 mmol/L (136-145); TOTAL PROTEIN, SERUM 7.4 g/dL (6.4-8.2); UREA NITROGEN, BLOOD 13 mg/dL (7-18)
[2020-01-03 08:00] VITALS: BP 136/76
[2020-01-03] MEDS: ASPIRIN 81 MG CHEWABLE TABLET PO SCH (08:10)
[2020-01-03] MEDS: LOSARTAN POTASSIUM 25 MG TABLET PO SCH (08:10)
[2020-01-03] MEDS: METOPROLOL TARTRATE 25 MG TABLET PO SCH ×2 (08:11→21:00)
[2020-01-03] MEDS: TAMSULOSIN HCL 0.4 MG CAPSULE PO SCH ×2 (08:11→20:16)
[2020-01-03] MEDS: MetroNIDAZOLE 500 MG TABLET PO SCH ×3 (08:11→20:16)
[2020-01-03] MEDS: PANTOPRAZOLE SODIUM 40 MG DR TABLET PO SCH (08:12)
[2020-01-03] MEDS: ZINC GLUCONATE 50 MG TABLET PO SCH (08:15)
[2020-01-03] MEDS: HEPARIN SODIUM,PORCINE 5,000 UNITS/ML VIAL SQ SCH ×2 (08:15→20:17)
[2020-01-03] MEDS: CETIRIZINE HCL 10 MG TABLET PO SCH (08:15)
[2020-01-03] MEDS: SERTRALINE HCL 100 MG TABLET PO SCH (08:15)
[2020-01-03 08:48] LABS: C-REACTIVE PROTEIN QUANT 24.07 mg/dL (0.00-0.30)
[2020-01-03 10:34] LABS: APPEARANCE,URINE CLEAR (CLEAR); BILIRUBIN,URINE NEGATIVE (NEGATIVE); GLUCOSE, URINE (UA) NEGATIVE (NEGATIVE); KETONES,URINE NEGATIVE (NEGATIVE); LEUKOCYTE ESTERASE ,URINE SMALL (NEGATIVE); NITRATE,URINE NEGATIVE (NEGATIVE); OCCULT BLOOD,URINE NEGATIVE (NEGATIVE); PH,URINE 6.5 (5.0-8.0); PROTEIN,URINE POS 1+ (NEGATIVE); UROBILINOGEN,URINE 0.2 mg/dL (<=1.0)
[2020-01-03 10:46] LABS: BACTERIA,URINE Rare /HPF (None Seen); RBC,URINE 0-2 /HPF (0-2); SQUAMOUS EPITHELIAL CELL,UR Few /LPF (None Seen); WBC,URINE 0-2 /HPF (0-5)
[2020-01-03] MEDS: AZITHROMYCIN 500 MG TABLET PO SCH (11:02)
[2020-01-03] MEDS: FLUTICASONE/SALMETEROL 100 MCG-50 MCG/INH DISKUS INHALER [28] IH SCH ×2 (11:06→20:17)
[2020-01-03 12:00] VITALS: BP 106/52
[2020-01-03 12:21] LABS: FERRITIN 1627 ng/mL (26-388); LACTATE DEHYDROGENASE 201 U/L (85-227)
[2020-01-03 16:00] VITALS: BP 117/50
[2020-01-03 17:54] LABS: GLUCOMETER DEV NAME(LOC) 5N.1; GLUCOSE,POINT OF CARE 104 MG/DL (70-110)
[2020-01-03 20:15] VITALS: BP 124/52
[2020-01-04 00:05] VITALS: BP 129/61
[2020-01-04] MEDS: ACETAMINOPHEN 325 MG TABLET PO PRN (00:22)
[2020-01-04 06:42] LABS: GLUCOMETER DEV NAME(LOC) 5N.2; GLUCOSE,POINT OF CARE 131 MG/DL (70-110)
[2020-01-04 06:45] VITALS: BP 118/56
[2020-01-04 06:56] LABS: GLUCOMETER DEV NAME(LOC) 5N.1; GLUCOSE,POINT OF CARE 90 MG/DL (70-110)
[2020-01-04 07:10] LABS: BASOPHILS % (AUTO) 0.4 % (0.0-2.0); EOSINOPHILS % (AUTO) 0.2 % (1.0-6.0); HEMATOCRIT 39.1 % (41-53); LYMPHOCYTES # (AUTO) 1.1 K/uL (1.0-4.8); LYMPHOCYTES % (AUTO) 6.7 % (22.0-44.0); MEAN CORPUSCULAR HEMOGLOBIN 31.6 pg (26.0-34.0); MEAN CORPUSCULAR HGB CONC 33.3 G/dL (31.0-37.0); MEAN CORPUSCULAR VOLUME 95 fL (80-100); MONOCYTES # (AUTO) 1.7 K/uL (0.1-1.0); MONOCYTES % (AUTO) 10.7 % (2.0-9.0); NEUTROPHILS # (AUTO) 13.1 K/uL (1.8-7.7); PLATELET COUNT (AUTO) 519 K/uL (150-450); RED BLOOD CELL COUNT(AUTO) 4.12 MIL/uL (4.50-5.90); RED CELL DISTRIBUTION WIDTH 12.8 % (11.5-14.5)
[2020-01-04 08:00] VITALS: BP 110/64
[2020-01-04] MEDS: FLUTICASONE/SALMETEROL 100 MCG-50 MCG/INH DISKUS INHALER [28] IH SCH ×2 (08:02→22:10)
[2020-01-04 08:03] LABS: ALANINE AMINOTRANSFERASE 94 U/L (12-78); ALKALINE PHOSPHATASE 147 U/L (46-116); ANION GAP 12 mmol/L (8-16); ASPARTATE AMINOTRANSFERASE 48 U/L (15-37); BILIRUBIN,TOTAL 0.6 mg/dL (0.1-1.0); C-REACTIVE PROTEIN QUANT 23.99 mg/dL (0.00-0.30); CALCIUM, TOTAL 8.4 mg/dL (8.8-10.5); CARBON DIOXIDE 21 mmol/L (22-29); CHLORIDE 101 mmol/L (98-107); CREATININE 0.99 mg/dL (0.60-1.30); FERRITIN 2003 ng/mL (26-388); GLOMERULAR FILTR. RATE CALC > 60 mL/min (>60); GLUCOSE,RANDOM 104 mg/dL (70-110); LACTATE DEHYDROGENASE 152 U/L (85-227); POTASSIUM 4.3 mmol/L (3.5-5.1); SODIUM SERUM 134 mmol/L (136-145); TOTAL PROTEIN, SERUM 7.5 g/dL (6.4-8.2); UREA NITROGEN, BLOOD 15 mg/dL (7-18)
[2020-01-04] MEDS: ASPIRIN 81 MG CHEWABLE TABLET PO SCH (08:03)
[2020-01-04] MEDS: MetroNIDAZOLE 500 MG TABLET PO SCH ×3 (08:04→22:10)
[2020-01-04] MEDS: TAMSULOSIN HCL 0.4 MG CAPSULE PO SCH ×2 (08:04→22:11)
[2020-01-04] MEDS: ZINC GLUCONATE 50 MG TABLET PO SCH (08:04)
[2020-01-04] MEDS: LOSARTAN POTASSIUM 25 MG TABLET PO SCH (08:04)
[2020-01-04] MEDS: METOPROLOL TARTRATE 25 MG TABLET PO SCH ×2 (08:04→22:11)
[2020-01-04] MEDS: PANTOPRAZOLE SODIUM 40 MG DR TABLET PO SCH (08:04)
[2020-01-04] MEDS: SERTRALINE HCL 100 MG TABLET PO SCH (08:05)
[2020-01-04] MEDS: CETIRIZINE HCL 10 MG TABLET PO SCH (08:05)
[2020-01-04] MEDS: HEPARIN SODIUM,PORCINE 5,000 UNITS/ML VIAL SQ SCH ×2 (08:05→22:11)
[2020-01-04 11:39] VITALS: BP 104/47
[2020-01-04 14:17] LABS: GLUCOMETER DEV NAME(LOC) 5N.2; GLUCOSE,POINT OF CARE 133 MG/DL (70-110)
[2020-01-04 16:00] VITALS: BP 120/54
[2020-01-04 18:08] LABS: GLUCOMETER DEV NAME(LOC) 5N.2; GLUCOSE,POINT OF CARE 102 MG/DL (70-110)
[2020-01-04 18:49] LABS: C.DIFF GDH ANTIGEN, Stool Negative (Negative); C.DIFF TOXINS A&B, Stool Negative (Negative)
[2020-01-04 20:00] VITALS: BP 134/53
[2020-01-04 23:14] LABS: GLUCOMETER DEV NAME(LOC) 5N.2; GLUCOSE,POINT OF CARE 103 MG/DL (70-110)
[2020-01-05] VITALS: BP 117/56
[2020-01-05 04:01] VITALS: BP 134/60
[2020-01-05 06:11] LABS: GLUCOMETER DEV NAME(LOC) 5N.1; GLUCOSE,POINT OF CARE 98 MG/DL (70-110)
[2020-01-05 07:20] LABS: BASOPHILS % (AUTO) 0.4 % (0.0-2.0); EOSINOPHILS % (AUTO) 0.5 % (1.0-6.0); HEMATOCRIT 38.6 % (41-53); MEAN CORPUSCULAR HGB CONC 33.7 G/dL (31.0-37.0); MEAN CORPUSCULAR VOLUME 95 fL (80-100); MONOCYTES # (AUTO) 1.7 K/uL (0.1-1.0); MONOCYTES % (AUTO) 11.6 % (2.0-9.0); NEUTROPHILS # (AUTO) 11.6 K/uL (1.8-7.7); NEUTROPHILS % (AUTO) 80.5 % (40.0-70.0); PLATELET COUNT (AUTO) 505 K/uL (150-450); RED BLOOD CELL COUNT(AUTO) 4.06 MIL/uL (4.50-5.90); RED CELL DISTRIBUTION WIDTH 13.2 % (11.5-14.5)
[2020-01-05 07:44] LABS: D-DIMER 3.84 mg/L FEU (0.00-0.50)
[2020-01-05 08:00] VITALS: BP 120/55
[2020-01-05 08:24] LABS: ALANINE AMINOTRANSFERASE 81 U/L (12-78); ALKALINE PHOSPHATASE 132 U/L (46-116); ANION GAP 10 mmol/L (8-16); ASPARTATE AMINOTRANSFERASE 42 U/L (15-37); BILIRUBIN,TOTAL 0.4 mg/dL (0.1-1.0); CALCIUM, TOTAL 8.3 mg/dL (8.8-10.5); CARBON DIOXIDE 23 mmol/L (22-29); CHLORIDE 101 mmol/L (98-107); CREATINE KINASE, TOTAL ONLY 14 U/L (39-308); CREATININE 0.95 mg/dL (0.60-1.30); FERRITIN 2030 ng/mL (26-388); GLOMERULAR FILTR. RATE CALC > 60 mL/min (>60); GLUCOSE,RANDOM 95 mg/dL (70-110); LACTATE DEHYDROGENASE 119 U/L (85-227); POTASSIUM 4.3 mmol/L (3.5-5.1); SODIUM SERUM 134 mmol/L (136-145); TOTAL PROTEIN, SERUM 7.3 g/dL (6.4-8.2); UREA NITROGEN, BLOOD 15 mg/dL (7-18)
[2020-01-05] MEDS: ASPIRIN 81 MG CHEWABLE TABLET PO SCH (08:30)
[2020-01-05] MEDS: FLUTICASONE/SALMETEROL 100 MCG-50 MCG/INH DISKUS INHALER [28] IH SCH ×2 (08:30→21:00)
[2020-01-05] MEDS: MetroNIDAZOLE 500 MG TABLET PO SCH ×3 (08:30→20:59)
[2020-01-05] MEDS: LOSARTAN POTASSIUM 25 MG TABLET PO SCH (08:30)
[2020-01-05] MEDS: METOPROLOL TARTRATE 25 MG TABLET PO SCH ×2 (08:31→20:58)
[2020-01-05] MEDS: TAMSULOSIN HCL 0.4 MG CAPSULE PO SCH ×2 (08:31→20:59)
[2020-01-05] MEDS: ZINC GLUCONATE 50 MG TABLET PO SCH (08:32)
[2020-01-05] MEDS: HEPARIN SODIUM,PORCINE 5,000 UNITS/ML VIAL SQ SCH ×2 (08:32→20:59)
[2020-01-05] MEDS: SERTRALINE HCL 100 MG TABLET PO SCH (08:32)
[2020-01-05] MEDS: PANTOPRAZOLE SODIUM 40 MG DR TABLET PO SCH (08:32)
[2020-01-05] MEDS: CETIRIZINE HCL 10 MG TABLET PO SCH (08:32)
[2020-01-05 12:00] VITALS: BP 100/48
[2020-01-05 16:00] VITALS: BP 105/50
[2020-01-05 20:00] VITALS: BP 137/62
[2020-01-06 05:46] VITALS: BP 135/58
[2020-01-06 06:11] LABS: BASOPHILS % (AUTO) 0.4 % (0.0-2.0); EOSINOPHILS % (AUTO) 0.7 % (1.0-6.0); HEMATOCRIT 39.2 % (41-53); LYMPHOCYTES # (AUTO) 1.1 K/uL (1.0-4.8); LYMPHOCYTES % (AUTO) 9.5 % (22.0-44.0); MEAN CORPUSCULAR HEMOGLOBIN 31.4 pg (26.0-34.0); MEAN CORPUSCULAR HGB CONC 33.2 G/dL (31.0-37.0); MEAN CORPUSCULAR VOLUME 95 fL (80-100); MONOCYTES # (AUTO) 1.4 K/uL (0.1-1.0); MONOCYTES % (AUTO) 11.6 % (2.0-9.0); NEUTROPHILS # (AUTO) 9.3 K/uL (1.8-7.7); NEUTROPHILS % (AUTO) 77.8 % (40.0-70.0); PLATELET COUNT (AUTO) 493 K/uL (150-450); RED BLOOD CELL COUNT(AUTO) 4.14 MIL/uL (4.50-5.90)
[2020-01-06 07:06] LABS: ALANINE AMINOTRANSFERASE 67 U/L (12-78); ALBUMIN 2.1 g/dL (3.4-5.0); ALKALINE PHOSPHATASE 119 U/L (46-116); ANION GAP 9 mmol/L (8-16); ASPARTATE AMINOTRANSFERASE 33 U/L (15-37); BILIRUBIN,TOTAL 0.3 mg/dL (0.1-1.0); CALCIUM, TOTAL 8.4 mg/dL (8.8-10.5); CARBON DIOXIDE 22 mmol/L (22-29); CHLORIDE 101 mmol/L (98-107); FERRITIN 1566 ng/mL (26-388); GLOMERULAR FILTR. RATE CALC > 60 mL/min (>60); GLUCOSE,RANDOM 106 mg/dL (70-110); POTASSIUM 4.3 mmol/L (3.5-5.1); SODIUM SERUM 132 mmol/L (136-145); TOTAL PROTEIN, SERUM 7.3 g/dL (6.4-8.2); UREA NITROGEN, BLOOD 15 mg/dL (7-18)
[2020-01-06 08:00] VITALS: BP 138/81
[2020-01-06] MEDS: ASPIRIN 81 MG CHEWABLE TABLET PO SCH (08:37)
[2020-01-06] MEDS: LOSARTAN POTASSIUM 25 MG TABLET PO SCH (08:37)
[2020-01-06] MEDS: MetroNIDAZOLE 500 MG TABLET PO SCH (08:37)
[2020-01-06] MEDS: SERTRALINE HCL 100 MG TABLET PO SCH (08:37)
[2020-01-06] MEDS: TAMSULOSIN HCL 0.4 MG CAPSULE PO SCH (08:37)
[2020-01-06] MEDS: HEPARIN SODIUM,PORCINE 5,000 UNITS/ML VIAL SQ SCH (08:37)
[2020-01-06] MEDS: CETIRIZINE HCL 10 MG TABLET PO SCH (08:37)
[2020-01-06] MEDS: PANTOPRAZOLE SODIUM 40 MG DR TABLET PO SCH (08:37)
[2020-01-06] MEDS: METOPROLOL TARTRATE 25 MG TABLET PO SCH (08:40)
[2020-01-06] MEDS: ZINC GLUCONATE 50 MG TABLET PO SCH (08:40)
[2020-01-06] MEDS: FLUTICASONE/SALMETEROL 100 MCG-50 MCG/INH DISKUS INHALER [28] IH SCH (08:43)
[2020-01-06 12:28] LABS: GLUCOMETER DEV NAME(LOC) 5N.1; GLUCOSE,POINT OF CARE 99 MG/DL (70-110)
[2020-01-06 12:28] LABS: GLUCOMETER DEV NAME(LOC) 5N.1; GLUCOSE,POINT OF CARE 109 MG/DL (70-110)
[2020-01-06 12:28] LABS: GLUCOMETER DEV NAME(LOC) 5N.1; GLUCOSE,POINT OF CARE 95 MG/DL (70-110)
[2020-01-06] MEDS ORDERED: ADV250 IH (15:28)
[2020-01-06] MEDS ORDERED: METR500 PO (15:30)
[2020-01-06 17:29] LABS: GLUCOMETER DEV NAME(LOC) 5N.2; GLUCOSE,POINT OF CARE 100 MG/DL (70-110)
== END 2020-01-06 15:45 | disposition home or self-care (01) | DRG 177 ==
LOC: EMS 08:20 → 5N 14:39
PROVIDERS: ADMIT Internal Medicine; ATTEND Internal Medicine
DX: U07.1 COVID-19 (principal); J96.01 Acute respiratory failure with hypoxia; J12.89 Other viral pneumonia; E87.1 Hypo-osmolality and hyponatremia; I10 Essential (primary) hypertension; E78.00 Pure hypercholesterolemia, unspecified; R19.7 Diarrhea, unspecified; E11.9 Type 2 diabetes mellitus without complications; N40.0 Benign prostatic hyperplasia without lower urinary tract symptoms; Z88.8 Allergy status to other drugs, medicaments and biological substances; Z82.49 Family history of ischemic heart disease and other diseases of the circulatory system
CPT/HCPCS: 76705; 80074; 82728; 83615; 84145; 85379; 85384; 85651; 86140; 87040; 87324; 87449; 93306; 99291; J1644; J3535